=== PATIENT | female | born 1965 | race Caucasian/White ===

== ENCOUNTER 2021-08-30 15:57 | Emergency (ER) | payer OTHER, MEDICAID, SELFPAY ==
[2021-08-30 16:01] VITALS: BP 177/106; PULSE 128; RESP 28; TEMP 36.2; O2SAT 98
[2021-08-30 16:48] LABS: Appearance Urine UA SL CLOUDY; Bilirubin Urine UA NEGATIVE (NEGATIVE); Color Urine UA YELLOW; Glucose Urine UA NEGATIVE (Negative); Ketones Urine UA TRACE (NEGATIVE); Leukocyte Esterase Urine UA TRACE (NEGATIVE); Nitrite Urine UA NEGATIVE (Negative); Occult Blood Urine UA NEGATIVE (Negative); Protein Urine UA 1+ (Negative); Specific Gravity Urine UA 1.025 (1.000-1.035); Urobilinogen Urine UA 0.2 E.U./dL (0.2)
[2021-08-30 16:51] LABS: pH Urine UA 5.5 (4.5-8.0)
[2021-08-30 16:54] LABS: UR Morphine/Opiate cutoff 300 Negative (Negative); Ur Creatinine Normal (Normal); Ur Specific Gravity Normal (Normal); Urine Amphetamines Negative (Negative); Urine Barbiturates Negative (Negative); Urine Benzodiazepines Positive (Negative); Urine Cocaine Negative (Negative); Urine MDMA Negative (Negative); Urine Methadone Negative (Negative); Urine Methamphetamines Negative (Negative); Urine Oxycodone Negative (Negative); Urine Phencyclidine Negative (Negative); Urine Tetrahydrocannabinol Negative (Negative); Urine Tricyclic Antidepressant Negative (Negative); Urine pH Normal (Normal)
[2021-08-30 16:55] LABS: Pregnancy Test Urine Negative (Negative)
[2021-08-30 16:59] LABS: Amorphous Sediment Urine 1+; Bacteria Urine Many (>30); Culture Indicated Urine Specimen Cultured; Mucus Urine 1+ (Negative); RBC Urine None Seen (0-5/HPF); Squamous Epithelial Cell Urine 5-10 /HPF (0-5/HPF); WBC Urine 5-10/HPF (0-5/HPF)
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
[2021-08-30 17:45] VITALS: BP 148/66; PULSE 90; RESP 17; O2SAT 98
[2021-08-30] MEDS: OLANZapine ODT 10 MG TAB PO (17:54)
[2021-08-30 18:16] LABS: COVID19 -Nasal RAPID Negative (Negative)
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
--- NOTE | 2021-08-30 19:11 | CM.SWNOTE ---
Addendum entered by Queenie Simpson 08/30/21 19:23: SCOURING PADS SUPERVISOR calls [facility] for bed census It is reported that [place], [place] and [place] triage have beds. SCOURING PADS SUPERVISOR calls [facility] intake it is reported that they do not have beds. RENE Gutierrez Original Note: SCOURING PADS SUPERVISOR Note Patient states that she has been to the [place] [facility] and would like to go there if it is an option. SCOURING PADS SUPERVISOR calls the crisis center in [place] (Ph. # [phone]) It is reported that they have beds and can review patient, but it may take 1-2 hours (current time 1920). SCOURING PADS SUPERVISOR or FUR FLOOR WORKER to fax referral (fax: [phone]) SCOURING PADS SUPERVISOR calls [facility] it is reported that they have beds and can review patient. SCOURING PADS SUPERVISOR or FUR FLOOR WORKER to fax clinicals for review. Patient states that she has a preference of the [place] [facility] over [facility] but states she will go. Plan: Continue to seek voluntary beds or crisis center bed for patient. RENE Gutierrez
[2021-08-30 19:29] LABS: Add Manual Diff / Slide Review NO; Basophils Absolute Auto 0 /uL (0-100); Basophils Percent Auto 0.6 % (0-2); Eosinophils Absolute Auto 100 /uL (0-450); Hematocrit 42.3 % (36-46); Hemoglobin 13.8 g/dL (12.0-16.0); Lymphocytes Absolute Auto 1900 /uL (1100-4500); Lymphocytes Percent Auto 25.6 % (25-40); Mean Corpuscular HGB Conc 32.7 % (30-36); Mean Corpuscular Hemoglobin 27.3 PG (26-34); Mean Corpuscular Volume 83.6 fL (80-100); Monocytes Absolute Auto 600 /uL (0-900); Neutrophils Absolute Auto 4700 /uL (1500-7000); Neutrophils Percent Auto 63.8 % (50-75); Platelet Count 227 X10^3/uL (150-400); Red Blood Cell Count 5.06 X10^6/uL (4.0-5.2); Red Cell Distribution Width 15.7 % (11.6-14.8); White Blood Cell Count 7.3 X10^3/uL (4.5-11.0)
[2021-08-30 19:42] LABS: Acetaminophen < 10 ug/mL (10-30); Alanine Aminotransferase 22 IU/L (<35); Albumin 4.2 g/dL (3.5-5.0); Albumin Globulin Ratio 1.4 (1.0-2.8); Alkaline Phosphatase 75 U/L (38-126); Aspartate Aminotransferase 20 IU/L (14-36); Bilirubin Total 0.4 mg/dL (0.2-1.3); Blood Urea Nitrogen 18 mg/dL (7-17); Calcium 9.3 mg/dL (8.4-10.2); Carbon Dioxide 28 mmol/L (22-32); Chloride 102 mmol/L (98-107); Estimated Glomerular Filt Rate > 60.0 mL/min (>60); Ethanol (ETOH) < 10 mg/dL; Glucose 102 mg/dL (70-100); HEMOLYSIS < 15 (0-50); Lipase 149 U/L (23-300); Potassium 4.1 mmol/L (3.4-5.1); Salicylate < 1.0 mg/dL (<20); Sodium 138 mmol/L (137-145); Total Protein 7.2 g/dL (6.3-8.2)
[2021-08-30 19:53] LABS: Troponin I < 0.012 ng/mL (0.01-0.034)
[2021-08-30 20:28] LABS: Thyroid Stimulating Hormone 1.79 uIU/mL (0.47-4.68)
--- NOTE | 2021-08-30 23:24 | PC.NURSE ---
Spoke to phone triage at [facility]. They are currently unable to prescribe medications to patient should she need them so do not feel like she is a good fit at this time. Suggested contacting [facility] for placement but that if placement was unable to be located that they could consider taking her should her medications already be prescribed prior to arrival.
--- NOTE | 2021-08-30 23:35 | PC.NURSE ---
Called and faxed paperwork to [facility], to request transfer.
--- NOTE | 2021-08-31 00:26 | PC.NURSE ---
Spoke to [facility] intake. Updated them on patient's status and answered questions regarding patient. Person on the phone did let this RN know that they do not have a prescriber available until Thursday so if patient could come with own meds or with prescriptions to be filled, would be able to take patient. Did ask about CONFIGURATION ENGINEER note regarding termite helper placement, advised triage person that it was the patient's request for [facility] placement but preferred the crisis centers over [facility].
--- NOTE | 2021-08-31 01:34 | PC.NURSE ---
Spoke to Mallorie at [facility], they declined the patient d/t known history and notes provided by BACK STAYER stating they believe the patient is better suited for longer term placement than a 5 day stabilization placement. Notified Charge.
[2021-08-31 02:50] VITALS: BP 104/63; PULSE 74; RESP 18; O2SAT 98
--- NOTE | 2021-08-31 06:54 | PC.NURSE ---
Pt accepted at [facility] with an arrival time of 0900.
[2021-08-31 08:19] VITALS: BP 133/62; PULSE 65; TEMP 36.6; O2SAT 93
== END 2021-08-31 08:45 ==
PROVIDERS: Emergency Medicine; Emergency Provider Emergency Medicine
DX: F23 Brief psychotic disorder (principal); Z20.822 Contact with and (suspected) exposure to COVID-19
CPT/HCPCS: 36415; 80053; 80305; 80320; 80329; 81001; 81003; 81025; 83690; 83735; 84443; 84484; 85025; 87086; 87635; 93005; 99284; C9803; G0480